=== PATIENT | male | born 1985 | race Caucasian/White ===

== ENCOUNTER 2017-12-06 12:26 | Emergency (ER) | payer OTHER ==
[~2017-12-06] VITALS: Ht 180.3 cm; Wt 131.0 kg
[2017-12-06] MEDS ORDERED: KETOROLAC 30 MG/1 ML IM ONE (13:30)
[2017-12-06 13:57] LABS: BASOPHILS # (AUTO) 0.09 x10^3/uL (0-0.1); BASOPHILS % (AUTO) 1 % (0-1); EOSINOPHILS # (AUTO) 0.05 x10^3/uL (0-0.4); EOSINOPHILS % (AUTO) 0 % (1-7); LYMPHOCYTES # (AUTO) 2.83 x10^3/uL (1-3.4); LYMPHOCYTES % (AUTO) 22 % (22-44); MD NO; MEAN CORPUSCULAR HGB CONC 34.3 g/dL (33.2-36.2); MEAN CORPUSCULAR VOLUME 81.5 fL (81-97); MEAN PLATELET VOLUME 8.3 fL (7.4-10.4); MONOCYTES # (AUTO) 0.94 x10^3/uL (0.2-0.8); MONOCYTES % (AUTO) 7 % (2-9); NEUTROPHILS # (AUTO) 9.17 x10^3/uL (1.8-6.8); NEUTROPHILS % (AUTO) 70 % (42-75); PLATELET COUNT 322 x10^3/uL (130-400); RED BLOOD COUNT 5.17 x10^6/uL (4.38-5.82); RED CELL DISTRIBUTION WIDTH 13.2 % (9.4-14.8)
[2017-12-06 14:05] LABS: ALBUMIN 3.8 g/dL (3.4-5.0); ANION GAP 9 mmol/L (5-15); CALCIUM 9.1 mg/dL (8.5-10.1); CHLORIDE 106 mmol/L (98-107); CREATININE 1.14 mg/dL (0.7-1.3)
[2017-12-06] MEDS ORDERED: KETOROLAC 30 MG/1 ML ONE (14:12)
[2017-12-06 15:35] VITALS: BP 146/82
== END 2017-12-06 15:37 | disposition home or self-care (01) ==
LOC: ED 15:31
DX: M10.061 Idiopathic gout, right knee (principal); Z91.040 Latex allergy status
CPT/HCPCS: 36415; 73564; 80048; 82040; 84550; 85025; 96372; 99285; J1885

== ENCOUNTER 2018-07-24 18:04 | Emergency (ER) | payer OTHER ==
[~2018-07-24] VITALS: Ht 180.3 cm; Wt 132.5 kg
[2018-07-24] MEDS ORDERED: ASPIRIN 81 MG TABLET CHEW PO ONE (18:30)
[2018-07-24 19:33] LABS: BASOPHILS # (AUTO) 0.11 x10^3/uL (0-0.1); BASOPHILS % (AUTO) 1 % (0-1); EOSINOPHILS # (AUTO) 0.07 x10^3/uL (0-0.4); EOSINOPHILS % (AUTO) 1 % (1-7); LYMPHOCYTES # (AUTO) 3.34 x10^3/uL (1-3.4); LYMPHOCYTES % (AUTO) 33 % (22-44); MD NO; MEAN CORPUSCULAR HGB CONC 34.3 g/dL (33.2-36.2); MEAN CORPUSCULAR VOLUME 81.6 fL (81-97); MEAN PLATELET VOLUME 8.4 fL (7.4-10.4); MONOCYTES # (AUTO) 0.83 x10^3/uL (0.2-0.8); MONOCYTES % (AUTO) 8 % (2-9); NEUTROPHILS # (AUTO) 5.68 x10^3/uL (1.8-6.8); NEUTROPHILS % (AUTO) 57 % (42-75); PLATELET COUNT 294 x10^3/uL (130-400); RED BLOOD COUNT 5.15 x10^6/uL (4.38-5.82); RED CELL DISTRIBUTION WIDTH 13.4 % (9.4-14.8)
[2018-07-24 19:42] LABS: ANION GAP 7 mmol/L (5-15); CALCIUM 9.6 mg/dL (8.5-10.1); CHLORIDE 109 mmol/L (98-107); CREATININE 1.07 mg/dL (0.7-1.3)
[2018-07-24 19:46] LABS: TROPONIN I < 0.015 ng/mL (0.000-0.045)
[2018-07-24] MEDS ORDERED: ASPIRIN 81 MG TABLET CHEW ONE (20:44)
--- NOTE | 2018-07-24 20:45 | NUR ---
PT AMBULATED FROM LOBBY TO ROOM WITH STEADY GAIT. PT MEDICATED PER MAY.
--- NOTE | 2018-07-24 21:00 | NUR ---
PT MEDICATED PER MAR.
[2018-07-24 21:55] VITALS: BP 109/59
--- NOTE | 2018-07-24 22:23 | NUR ---
PT D/C WITH D/C SUMMARY. ALL QUESTIONS ANSWERED. PT AMBULATES TO REGISTRATION DESK WITH STEADY GAIT FOR D/C HOME. PT DENIES ANY OTHER NEEDS PERTAINING TO THIS VISIT. PT DRIVING HOME IN PERSONAL VEHICLE.
== END 2018-07-24 22:26 | disposition home or self-care (01) ==
LOC: ED 22:19
DX: R07.2 Precordial pain (principal); I10 Essential (primary) hypertension
CPT/HCPCS: 36415; 71046; 80048; 82040; 84484; 85025; 93005; 99284

== ENCOUNTER → 2019-08-14 | Outpatient (CLI) | payer OTHER | END | disposition home or self-care (01) | LOC: CVU 08:16 | PROVIDERS: ATTEND Internal Medicine Cardiovascular Disease | DX: I10 Essential (primary) hypertension (principal); R07.9 Chest pain, unspecified | CPT/HCPCS: 93306; 93975 ==